=== PATIENT | male | born 1980 | race Hispanic/Latino ===

== ENCOUNTER 2017-09-26 05:08 | Emergency (ER) | payer SELFPAY ==
[2017-09-26] MEDS ORDERED: ACETAMINOPHEN 325 MG TAB ONE (05:56)
== END 2017-09-26 06:01 | disposition home or self-care (01) ==
LOC: EDH 05:08
DX: S90.32XA Contusion of left foot, initial encounter (principal); Z72.0 Tobacco use; W20.8XXA Other cause of strike by thrown, projected or falling object, initial encounter; Y93.89 Activity, other specified; Y92.89 Other specified places as the place of occurrence of the external cause; Y99.8 Other external cause status
CPT/HCPCS: 73630